=== PATIENT | female | born 1945 | race Caucasian/White ===

== ENCOUNTER → 2024-07-22 13:23 | Outpatient (BNVA) | payer MEDICARE, OTHER, SELFPAY | PROVIDERS: PCP Family Medicine; Visit Provider Family Medicine | DX: D48.5 Neoplasm of uncertain behavior of skin (principal) | CPT/HCPCS: 88305 ==

== ENCOUNTER → 2024-08-19 09:24 | Outpatient (BNVA) | payer MEDICARE, OTHER, SELFPAY | PROVIDERS: PCP Family Medicine; Visit Provider Dermatology | DX: L71.8 Other rosacea (principal); H61.032 Chondritis of left external ear; C44.722 Squamous cell carcinoma of skin of right lower limb, including hip; L57.0 Actinic keratosis | CPT/HCPCS: 17000; 17262; 99204 ==

== ENCOUNTER → 2024-09-05 16:24 | Outpatient (BNVA) | payer MEDICARE, OTHER, SELFPAY | PROVIDERS: PCP Family Medicine; Visit Provider Family Medicine | DX: Z13.6 Encounter for screening for cardiovascular disorders (principal); E78.00 Pure hypercholesterolemia, unspecified; I65.22 Occlusion and stenosis of left carotid artery; I47.10 Supraventricular tachycardia, unspecified; E55.9 Vitamin D deficiency, unspecified; E53.8 Deficiency of other specified B group vitamins; R73.01 Impaired fasting glucose | CPT/HCPCS: 80053; 80061; 82306; 82607; 83036; 84443; 85025 ==

== ENCOUNTER 2024-09-16 14:28 | Outpatient (CLI) | payer MEDICARE, OTHER, SELFPAY ==
--- NOTE | 2024-09-16 15:00 | XR_ITS ---
WS: [id number] SCREENING DEXA SCAN [employer] CLINICAL INFORMATION: postmenopause COMPARISON: None. FINDINGS: Lumbar scoliosis. The L1-L4 bone mineral density measures 1.219 g/cm2. This corresponds to a T score score of 0.3 and Z score of 1.8. Left femoral neck bone mineral density measures 0.902 g/cm2. This corresponds to a T score of -0.8 and Z score of 0.9. Right femoral neck bone mineral density measures 0.891 g/cm2. This corresponds to a T score -0.9of and Z score of 0.8. Mean femoral neck bone mineral density measures 0.896 g/cm2. This corresponds to a T score of -0.9 and Z score of 0.9. XR/XR DEXA axial skeleton* [id number] IMPRESSION: Normal bone mineralization. Patient's FRAX calculated 10 year probability for major osteoporotic fracture i s 12.1% and osteoporotic hip fracture is 2.5%.
== END 2024-09-16 14:29 | disposition home or self-care (01) ==
LOC: RAD 14:31
PROVIDERS: PCP Family Medicine; Visit Provider Family Medicine
DX: Z78.0 Asymptomatic menopausal state (principal)
CPT/HCPCS: 77080

== ENCOUNTER → 2025-01-27 10:02 | Outpatient (BNVA) | payer MEDICARE, OTHER, SELFPAY | PROVIDERS: PCP Family Medicine; Visit Provider Dermatology | DX: L30.4 Erythema intertrigo (principal); H61.032 Chondritis of left external ear; Z08 Encounter for follow-up examination after completed treatment for malignant neoplasm; Z85.828 Personal history of other malignant neoplasm of skin | CPT/HCPCS: 17000; 99214 ==